=== PATIENT | female | born 1975 | race African-American/Black ===

== ENCOUNTER 2016-12-25 04:25 | Emergency (ER) | payer OTHER ==
[2016-12-25 04:49] VITALS: TEMP 98.1; BMI 29.7
[2016-12-25 05:07] LABS: BASOPHIL 1.1 % (0-2.0); EOSINOPHIL 1.8 % (0-4.5); MCH 29.9 pg (25.7-33.7); MCHC 34.4 g/dl (32.0-36.0); MEAN CELL VOLUME 86.7 fl (80-96); MEAN PLT VOLUME 7.4 fl (7.5-11.1); NEUTROPHILS 70.8 % (42.8-82.8); PLATELET COUNT 337 K/MM3 (134-434); RDW 15.1 % (11.6-15.6); WHITE BLOOD COUNT 7.4 K/mm3 (4.0-10.0)
[2016-12-25 05:09] LABS: URINE APPEARANCE CLEAR; URINE BILIRUBIN NEGATIVE (NEGATIVE); URINE BLOOD NEGATIVE (NEGATIVE); URINE COLOR LTYELLOW; URINE GLUCOSE (UA) NEGATIVE (NEGATIVE); URINE KETONE NEGATIVE (NEGATIVE); URINE LEUK ESTERASE NEGATIVE (NEGATIVE); URINE NITRITE NEGATIVE (NEGATIVE); URINE PROTEIN NEGATIVE (NEGATIVE); URINE UROBILINOGEN NEGATIVE E.U./dl (0.2-1.0)
--- NOTE | 2016-12-25 05:39 | PDOC ---
[id number] VAGINAL BLEEDING(13 WEEKS) Time Seen by Provider: 12/25/16 04:45 - History of Present Illness Initial Comments: 12/25/16 05:36 CHIEF COMPLAINT: Vaginal bleeding, 13 weeks HISTORY OF PRESENT ILLNESS: 41 year old A2 13 week female presents to ED with vaginal bleeding 2 days ago. Patient states she "passed a big clot two days ago, and then it stopped bleeding but I'm still having some cramping." Patient states this happened to her 8 years ago and she thought she was having a miscarriage, but she had a normal and gave to her daughter. Patient denies any fever, chills, vomiting, or diarrhea, but states she has had a little nausea. Patient states she was told at [facility] that she is 13 weeks this week; she states her LMP was "the first week of October." No recent travel or sick contacts. PAST MEDICAL HISTORY: Denies past medical history FAMILY HISTORY: Denies SOCIAL HISTORY: Smokes 1 cigarette weekly "only when I'm really stressed out." Denies alcohol, illicit drug use. SURGICAL HISTORY: ALLERGIES: No known drug allergies REVIEW OF SYSTEMS General/Constitutional: Denies fever or chills. Denies weakness, weight change. HEENT: Denies change in vision. Denies ear pain or discharge. Denies sore throat. Cardiovascular: Denies chest pain or shortness of breath. Respiratory: Denies cough, wheezing, or hemoptysis. Gastrointestinal: "A little nausea." Denies vomiting, diarrhea or constipation. Denies rectal bleeding. Genitourinary: Vaginal bleeding 2 days ago, "not really now." Denies dysuria, frequency, or change in urination. Musculoskeletal: Denies joint or muscle swelling or pain. Denies neck or back pain. Skin and breasts: Denies rash or easy bruising. Neurologic: Denies headache, vertigo, loss of consciousness, or loss of sensation. PHYSICAL EXAM General Appearance: Well-appearing, appropriately dressed. No apparent distress. HEENT: EOMI, PERRLA, normal voice. No conjunctival pallor. No photophobia, scleral icterus. Respiratory/Chest: Lungs CTAB. Cardiovascular: RRR. S1, S2. Gastrointestinal/Abdominal: Normal bowel sounds. Abdomen soft, non-distended. No tenderness or rebound tenderness. No organomegaly, pulsatile mass, guarding , hernia, hepatomegaly, splenomegaly. Musculoskeletal/Extremities: Normal inspection. FROM of all extremities, normal capillary refill. Pelvis Stable. No CVA tenderness. No tenderness to extremities, pedal edema, swelling, erythema or deformity. Integumentary: Appropriate color, dry, warm. 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 Fully oriented, alert. Appropriate mood/affect. Motor strength 5/5. No appreciable EOM palsy, facial droop or sensory deficit. Past History - Past Medical History Allergies/Adverse Reactions: Allergies Allergy/AdvReac Type Severity Reaction Status Date / Time No Known Allergies Allergy Verified 12/25/16 04:46 Home Medications: Ambulatory Orders Dextroamphetamine/Amphetamine [Adderall Xr 30 mg Capsule] 30 mg PO DAILY - Reproductive History Is Patient Now?: (Unknown) (#): 6 Para: 3 - Psycho/Social/Smoking Cessation Hx Suicidal Ideation: No Smoking History: Current every day smoker Number of Cigarettes Smoked Daily: 1 Information on smoking cessation initiated: No Hx Alcohol Use: No Drug/Substance Use Hx: No *Physical Exam - Vital Signs Last Vital Signs Temp Pulse Resp BP Pulse Ox 98.1 F 114 H 14 147/89 97 12/25/16 04:47 12/25/16 04:47 12/25/16 04:47 12/25/16 04:47 12/25/16 04:47 ED Treatment Course - LABORATORY CBC & Chemistry Diagram: 12/25/16 05:00 - ADDITIONAL ORDERS Additional order review: Laboratory Results 12/25/16 05:00 Urine Color Ltyellow Urine Appearance Clear Urine pH 6.0 Ur Specific [place] 1.019 Urine Protein Negative Urine Glucose (UA) Negative Urine Ketones Negative Urine Blood Negative Urine Nitrite Negative Urine Bilirubin Negative Urine Urobilinogen Negative Ur Leukocyte Esterase Negative 12/25/16 05:00 RBC 3.80 MCV 86.7 MCHC 34.4 RDW 15.1 MPV 7.4 L Neutrophils % 70.8 Lymphocytes % 17.2 Monocytes % 9.1 Eosinophils % 1.8 Basophils % 1.1 Medical Decision Making - Medical Decision Making 12/25/16 06:24 41 year old A2 13 week female presents to ED with vaginal bleeding 2 days ago. -CBC, T&S, beta hcg -UA, Ucx Labs unremarkable. Beta hCG ~40k. Patient blood type is AB negative. -Rhogam for threatened , repeat T&S -Transvaginal ultrasound to eval IUP and FHT Case discussed in detail with oncoming emergency provider including history, physical exam and ancillary studies. In brief, this patient is being seen in the ED for a chief complaint of: I have completed the initial assessment interview note and have ordered the following labs: CBC, T&S, beta hcg I have reviewed the following results: all Pending results: repeat T&S for Rhogam Plan for disposition as follows: pending U/S Oncoming NPA Duncan has assumed care for the patient and will complete the evaluation and treatment. *DC/Admit/Observation/Transfer Diagnosis at time of Disposition: Vaginal bleeding in Qualifiers: Trimester: first trimester Qualified Code(s): O46.91 - Antepartum hemorrhage, unspecified, first trimester - Discharge Dispostion Disposition: HOME Condition at time of disposition: Good - Referrals Referrals: Jazmyn Arroyo MD [Staff Physician] - Elsi Jansen MD [Primary Care Provider] - - Patient Instructions Printed Discharge Instructions: DI for Vaginal Bleeding During Additional Instructions: Discharge Instructions: -You were given a Rhogam injection today -Your ultrasound showed a healthy baby of 12 weeks 6 days -Follow up with your MUTUAL FUND ANALYST as soon as possible
--- NOTE | 2016-12-25 06:17 | PDOC ---
[id number] 147/89 97 12/25/16 04:47 12/25/16 04:47 12/25/16 04:47 12/25/16 04:47 12/25/16 04:47 ED Treatment Course - LABORATORY CBC & Chemistry Diagram: 12/25/16 05:00 - ADDITIONAL ORDERS Additional order review: Laboratory Results 12/25/16 12/25/16 12/25/16 05:00 05:00 05:00 Beta HCG, Quant 43600.8 Urine Color Ltyellow Urine Appearance Clear Urine pH 6.0 Ur Specific [place] 1.019 Urine Protein Negative Urine Glucose (UA) Negative Urine Ketones Negative Urine Blood Negative Urine Nitrite Negative Urine Bilirubin Negative Urine Urobilinogen Negative Ur Leukocyte Esterase Negative Blood Type AB NEGATIVE Antibody Screen Negative 12/25/16 05:00 RBC 3.80 MCV 86.7 MCHC 34.4 RDW 15.1 MPV 7.4 L Neutrophils % 70.8 Lymphocytes % 17.2 Monocytes % 9.1 Eosinophils % 1.8 Basophils % 1.1 Medical Decision Making - Medical Decision Making 12/25/16 06:17 agree with care from JAVIER Chao *DC/Admit/Observation/Transfer Diagnosis at time of Disposition: Vaginal bleeding in - Discharge Dispostion Disposition: HOME Condition at time of disposition: Good - Referrals Referrals: Jazmyn Arroyo MD [Staff Physician] - Elsi Jansen MD [Primary Care Provider] - - Patient Instructions Printed Discharge Instructions: DI for Vaginal Bleeding During Additional Instructions: Discharge Instructions: -You were given a Rhogam injection today -Your ultrasound showed a healthy baby of 12 weeks 6 days -Follow up with your TERRITORY REPRESENTATIVE as soon as possible
[2016-12-25] MEDS ORDERED: RHO(D) IMMUNE GLOBULIN 1,500 UNIT DISP.SYRIN IM ONE (06:18)
--- NOTE | 2016-12-25 07:27 | PDOC ---
ED Treatment Course - LABORATORY CBC & Chemistry Diagram: 12/25/16 05:00 - ADDITIONAL ORDERS Additional order review: Laboratory Results 12/25/16 12/25/16 12/25/16 06:39 05:00 05:00 Beta HCG, Quant 57836.8 Urine Color Urine Appearance Urine pH Ur Specific [place] Urine Protein Urine Glucose (UA) Urine Ketones Urine Blood Urine Nitrite Urine Bilirubin Urine Urobilinogen Ur Leukocyte Esterase Blood Type AB NEGATIVE AB NEGATIVE Antibody Screen Negative 12/25/16 05:00 Beta HCG, Quant Urine Color Ltyellow Urine Appearance Clear Urine pH 6.0 Ur Specific [place] 1.019 Urine Protein Negative Urine Glucose (UA) Negative Urine Ketones Negative Urine Blood Negative Urine Nitrite Negative Urine Bilirubin Negative Urine Urobilinogen Negative Ur Leukocyte Esterase Negative Blood Type Antibody Screen 12/25/16 05:00 RBC 3.80 MCV 86.7 MCHC 34.4 RDW 15.1 MPV 7.4 L Neutrophils % 70.8 Lymphocytes % 17.2 Monocytes % 9.1 Eosinophils % 1.8 Basophils % 1.1 Progress Note - Progress Note Progress Note: I have received report from JAVIER Chao regarding this patient. Pt's initial chief complaint: vaginal bleeding in Pt's work up completed prior to sign out: labs, beta, UA Pt treatment given from prior staff: rhogam Pt plan to be completed: awaiting ultrasound Dispo: Pending Medical Decision Making - Medical Decision Making A/P: 41 y/o afebrile A2 approximately 13 week female with vaginal bleeding 2 days ago. She was initially assessed by JAVIER Chao. Awaiting ultrasound Ultrasound IMPRESSION: Single, live intrauterine of 12 weeks 6 days The patient was given results and was discharged to home. Instructed her to f/ u with her PHP WEBSITE DEVELOPER aqnd return to the ER with any worsening or concerning symptoims. The patient verbalizes understanding of all instructions, has no further questions and is awaiting discharge. *DC/Admit/Observation/Transfer Diagnosis at time of Disposition: Vaginal bleeding in Qualifiers: Trimester: first trimester Qualified Code(s): O46.91 - Antepartum hemorrhage, unspecified, first trimester - Discharge Dispostion Disposition: HOME Condition at time of disposition: Good - Referrals Referrals: Elsi Jansen MD [Primary Care Provider] - Jazmyn Arroyo MD [Staff Physician] - - Patient Instructions Printed Discharge Instructions: DI for Vaginal Bleeding During Additional Instructions: Discharge Instructions: -You were given a Rhogam injection today -Your ultrasound showed a healthy baby of 12 weeks 6 days -Follow up with your PHP WEBSITE DEVELOPER as soon as possible
[2016-12-25 08:58] VITALS: BP 127/72; PULSE 93
== END 2016-12-25 10:00 | disposition home or self-care (01) ==
LOC: JER 04:25
PROC: 3E0234Z Introduction of Serum, Toxoid and Vaccine into Muscle, Percutaneous Approach (ICD-10-PCS; principal; 2016-12-25)
DX: O46.91 Antepartum hemorrhage, unspecified, first trimester (principal); O36.0910 Maternal care for other rhesus isoimmunization, first trimester, not applicable or unspecified; Z3A.12 12 weeks gestation of pregnancy
CPT/HCPCS: 36415; 76817-TC; 81003; 84702; 85025; 86850; 86900; 86901; 86999; 87086; 96372; 99283-25; J1561